=== PATIENT | male | born 1950 | race Caucasian/White ===

== ENCOUNTER 2019-06-18 05:18 | Emergency (ER) | payer MEDICARE, OTHER ==
[~2019-06-18] VITALS: Ht 190.5 cm; Wt 71.7 kg
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
--- NOTE | 2019-06-18 05:59 | NUR ---
URINE COLLECTED AND SENT TO LAB
[2019-06-18 06:51] LABS: APPEARANCE,URINE Clear (CLEAR); BILIRUBIN,URINE Negative (NEGATIVE); BLOOD, URINE Moderate Ery/uL (NEGATIVE); COLOR,URINE Yellow (YELLOW); KETONES,URINE Negative (NEGATIVE); LEUKOCYTE ESTERASE ,URINE Small (NEGATIVE); NITRITE, URINE Negative (NEGATIVE); PH,URINE 6.5 (5.0-8.0); PROTEIN,URINE Negative (NEGATIVE); UGLUCOSE Negative (NEGATIVE); UROBILINOGEN,URINE 0.2 EU/dL (0.2)
[2019-06-18 07:17] LABS: BACTERIA,URINE None seen /HPF (None Seen); RBC,URINE NONE SEEN /HPF (0-2); SQUAMOUS EPITHELIAL CELL,UR Few /HPF (None Seen)
[2019-06-18 07:32] VITALS: BP 151/71
--- NOTE | 2019-06-18 07:33 | NUR ---
Patient discharged to home in stable condition. Written and verbal after care instructions given. Patient verbalizes understanding of instruction.
== END 2019-06-18 07:33 | disposition home or self-care (01) ==
LOC: ER 05:26
DX: T83.028A Displacement of other urinary catheter, initial encounter (principal)
CPT/HCPCS: 81000-TC; 87086-TC

== ENCOUNTER 2019-07-09 04:20 | Emergency (ER) | payer OTHER ==
[~2019-07-09] VITALS: Ht 190.5 cm; Wt 67.1 kg
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
[2019-07-09 05:22] VITALS: BP 126/82
--- NOTE | 2019-07-09 05:22 | NUR ---
Patient discharged to home in stable condition. Written and verbal after care instructions given. Patient verbalizes understanding of instruction. PT ambulatory with a steady gait.
== END 2019-07-09 05:24 | disposition home or self-care (01) ==
LOC: ER 04:25
DX: H57.13 Ocular pain, bilateral (principal); F10.10 Alcohol abuse, uncomplicated; Y90.9 Presence of alcohol in blood, level not specified; Y08.89XA Assault by other specified means, initial encounter; Y93.39 Activity, other involving climbing, rappelling and jumping off; Y92.89 Other specified places as the place of occurrence of the external cause; Y99.8 Other external cause status
CPT/HCPCS: 70450-TC

== ENCOUNTER 2020-10-20 00:25 | Emergency (ER) | payer OTHER ==
[~2020-10-20] VITALS: Ht 190.5 cm; Wt 69.9 kg
[2020-10-20 00:33] VITALS: BP 127/79
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
== END 2020-10-20 03:20 ==
LOC: ER 00:25
DX: R05 Cough (principal); Z20.822 Contact with and (suspected) exposure to COVID-19
CPT/HCPCS: 87426; 99283; C9803

== ENCOUNTER 2025-03-21 13:09 | Inpatient (IN) | payer MEDICARE, OTHER ==
[~2025-03-21] VITALS: Ht 185.4 cm; Wt 62.1 kg
[2025-03-21 14:12] LABS: APPEARANCE,URINE CLEAR (CLEAR); BLOOD, URINE Moderate Ery/uL (NEGATIVE); LEUKOCYTE ESTERASE ,URINE Trace (NEGATIVE); UGLUCOSE Negative (NEGATIVE)
[2025-03-21 14:15] LABS: PLATELET COUNT (AUTO) 359 K/uL (150-450); RED BLOOD CELL COUNT(AUTO) 4.20 MIL/uL (4.5-6.0); RED CELL DISTRIBUTION WIDTH 15.8 % (11.5-15.0); WHITE BLOOD COUNT (AUTO) 12.2 K/uL (4.3-11.0)
[2025-03-21 14:17] LABS: NITRITE, URINE NEGATIVE (NEGATIVE)
[2025-03-21 14:18] LABS: CALCIUM, SERUM 9.2 mg/dL (8.5-10.1); CREATININE 1.5 mg/dL (0.6-1.3); SODIUM SERUM 134 mmol/L (136-145); UREA NITROGEN, BLOOD 56 mg/dL (7-18)
[2025-03-21 14:23] LABS: ASPARTATE AMINOTRANSFERASE 53 U/L (15-37); TOTAL PROTEIN, SERUM 7.6 g/dL (6.4-8.2)
[2025-03-21 14:29] LABS: ADD URINE CULTURE YES; SQUAMOUS EPITHELIAL CELL,UR Few /HPF (None Seen)
[2025-03-21] MEDS: IV NS 0.9% 1,000 ML BAG IV ONE ×2 (14:45→15:41)
[2025-03-21 14:57] LABS: LACTIC ACID 2.0 mmol/L (0.4-2.0)
[2025-03-21 15:22] LABS: AMPHETAMINE, URINE NEGATIVE (NEGATIVE); BARBITURATE, URINE NEGATIVE (NEGATIVE); BENZODIAZEPINE, URINE NEGATIVE (NEGATIVE); COCCAINE, URINE NEGATIVE (NEGATIVE); OPIATE, URINE NEGATIVE (NEGATIVE)
[2025-03-21 15:25] LABS: CANNABINOID, URINE POSITIVE (NEGATIVE)
[2025-03-21] MEDS: PIPERACILLIN /TAZOBACTAM 3.375 G in IV D5W 50 ML IV ONE (15:50)
[2025-03-21 15:59] LABS: SERUM AMMONIA 18 umol/L (11-32)
[2025-03-21 16:02] LABS: ALCOHOL, BLOOD < 3 mg/dL (0-10)
[2025-03-21] MEDS ORDERED: hydrALAZINE HCL IV 20 MG VIAL IV PRN (19:30)
[2025-03-21] MEDS ORDERED: DOSING PER PHARMACY-CEFEPIME IVPB XX PRN (19:30)
[2025-03-21] MEDS ORDERED: DEXTROSE 50%-WATER 50 ML DISP.SYRIN IV PRN (19:30)
[2025-03-21] MEDS ORDERED: MORPHINE SULFATE INJ 2 MG/ML DISP.SYRIN IV PRN (19:30)
[2025-03-21] MEDS ORDERED: ONDANSETRON HCL/PF 4 MG/2 ML VIAL IVP PRN (19:30)
[2025-03-21] MEDS ORDERED: ACETAMINOPHEN 325 MG TABLET PO PRN (19:30)
[2025-03-21 20:00] VITALS: BP 102/47; TEMP 97.9; O2SAT 98
[2025-03-21] MEDS: IV NS 0.9% 1,000 ML IV SCH (20:03)
[2025-03-21] MEDS: CEFEPIME 1 GM in IV D5W 50 ML IV SCH (20:29)
[2025-03-21] MEDS: HEPARIN SODIUM, PORCINE 5000 UNITS/1 ML VIAL SQ SCH (21:27)
[2025-03-21] MEDS: BLOOD SUGAR DIAGNOSTIC 1 EACH STRIP IN SCH (22:00)
[2025-03-21] MEDS: INSULIN REGULAR, HUMAN 100 UNIT/ML 3 ML VIAL SQ PRN (22:01)
[2025-03-22] VITALS: BP 103/66; TEMP 97.8; O2SAT 96
[2025-03-22 04:00] VITALS: BP 90/55; TEMP 98.1; O2SAT 95
[2025-03-22 07:58] LABS: PLATELET COUNT (AUTO) 318 K/uL (150-450); RED BLOOD CELL COUNT(AUTO) 3.88 MIL/uL (4.5-6.0); RED CELL DISTRIBUTION WIDTH 15.9 % (11.5-15.0); WHITE BLOOD COUNT (AUTO) 8.5 K/uL (4.3-11.0)
[2025-03-22 08:00] VITALS: BP_SYST 82; BP_SYST 93; BP_DIAS 45; BP_DIAS 48; TEMP 97.9; O2SAT 98
[2025-03-22 08:04] LABS: ASPARTATE AMINOTRANSFERASE 54.0 U/L (15-37); CALCIUM, SERUM 8.1 mg/dL (8.5-10.1); CREATININE 0.9 mg/dL (0.6-1.3); PHOSPHORUS 2.0 mg/dL (2.5-4.9); SODIUM SERUM 142.0 mmol/L (136-145); TOTAL PROTEIN, SERUM 5.7 g/dL (6.4-8.2); UREA NITROGEN, BLOOD 35.0 mg/dL (7-18)
[2025-03-22] MEDS: POLYETHYLENE GLYCOL 3350 17 GM POWD.PACK PO SCH (08:46)
[2025-03-22] MEDS: DOCUSATE SODIUM LIQ 100 MG/10 ML UDC PO SCH (08:46)
[2025-03-22 12:00] VITALS: BP 93/48; TEMP 98; O2SAT 97
[2025-03-22] MEDS: POTASSIUM CHLORIDE 20 MEQ TAB.PRT.SR PO ONE (12:52)
[2025-03-22 16:00] VITALS: BP 97/54; TEMP 97.7; O2SAT 97
[2025-03-22] MEDS: K PHOS NEUTRAL 250 MG TABLET PO ONE (16:57)
[2025-03-22 20:00] VITALS: BP 123/68; TEMP 97.7; O2SAT 97
[2025-03-23] VITALS: BP 120/70; TEMP 97.7; O2SAT 97
[2025-03-23 04:00] VITALS: BP 125/65; TEMP 98; O2SAT 97
[2025-03-23 07:35] LABS: PLATELET COUNT (AUTO) 285 K/uL (150-450); RED BLOOD CELL COUNT(AUTO) 4.44 MIL/uL (4.5-6.0); RED CELL DISTRIBUTION WIDTH 16.5 % (11.5-15.0); WHITE BLOOD COUNT (AUTO) 11.0 K/uL (4.3-11.0)
[2025-03-23 08:00] VITALS: BP 120/69; TEMP 98.4; O2SAT 96
[2025-03-23 08:15] LABS: ASPARTATE AMINOTRANSFERASE 44.0 U/L (15-37); CALCIUM, SERUM 8.0 mg/dL (8.5-10.1); CREATININE 0.6 mg/dL (0.6-1.3); SODIUM SERUM 139.0 mmol/L (136-145); TOTAL PROTEIN, SERUM 6.0 g/dL (6.4-8.2); UREA NITROGEN, BLOOD 24.0 mg/dL (7-18)
[2025-03-23 09:10] LABS: PHOSPHORUS 1.0 mg/dL (2.5-4.9)
[2025-03-23 09:52] LABS: CREATINE KINASE, TOTAL 409.0 U/L (39-308)
[2025-03-23 12:00] VITALS: BP 129/55; TEMP 98.1; O2SAT 96
[2025-03-23] MEDS: POTASSIUM CHLORIDE 20 MEQ TAB.PRT.SR PO SCH (15:13)
[2025-03-23] MEDS: NEUTRA PHOS 1 POWD.PACKET PO ONE (15:42)
[2025-03-23 16:00] VITALS: BP 112/67; TEMP 98.2; O2SAT 97
[2025-03-23 20:00] VITALS: BP 146/74; TEMP 98.2; O2SAT 98
[2025-03-24] VITALS: BP 140/60; TEMP 98.2; O2SAT 100
[2025-03-24 04:00] VITALS: BP 149/79; TEMP 97.9; O2SAT 96
[2025-03-24 05:08] LABS: PTH, INTACT 21 pg/mL (15-65)
[2025-03-24 07:28] LABS: CALCIUM, SERUM 7.7 mg/dL (8.5-10.1); CREATININE 0.6 mg/dL (0.6-1.3); SODIUM SERUM 139.0 mmol/L (136-145); UREA NITROGEN, BLOOD 16.0 mg/dL (7-18)
[2025-03-24 07:44] LABS: PHOSPHORUS 1.7 mg/dL (2.5-4.9)
[2025-03-24 08:00] VITALS: BP 146/75; TEMP 98; O2SAT 96
[2025-03-24 09:51] VITALS: BP 146/75; TEMP 98.1; O2SAT 97
[2025-03-24] MEDS: POTASSIUM CHLORIDE 20 MEQ TAB.PRT.SR PO SCH (10:17)
[2025-03-24] MEDS: MAGNESIUM OXIDE 400 MG TABLET PO SCH (10:17)
[2025-03-24 15:59] VITALS: BP 162/73; TEMP 98.2; O2SAT 97
[2025-03-24] MEDS: K PHOS NEUTRAL 250 MG TABLET PO ONE (16:00)
[2025-03-27 13:08] LABS: *SPE A/G RATIO 0.9 (0.7-1.7); *SPE ALBUMIN 2.4 g/dL (2.9-4.4); *SPE ALPHA-1-GLOBULIN 0.2 g/dL (0.0-0.4); *SPE ALPHA-2-GLOBULIN 0.8 g/dL (0.4-1.0); *SPE BETA GLOBULIN 1.0 g/dL (0.7-1.3); *SPE GLOBULIN, TOTAL 2.6 g/dL (2.2-3.9); *SPE M-SPIKE Not Observed g/dL (Not Observed); *SPE PROTEIN TOTAL 5.0 g/dL (6.0-8.5); *SPEGAMMA GLOBULIN 0.7 g/dL (0.4-1.8)
== END 2025-03-24 17:45 | DRG 720 ==
LOC: ER 13:15 → TELE1 18:21 → MEDSG1 03-24 08:57
PROVIDERS: ADMIT Internal Medicine; ATTEND Internal Medicine
DX: A41.9 Sepsis, unspecified organism (principal); N17.0 Acute kidney failure with tubular necrosis; R64 Cachexia; E44.0 Moderate protein-calorie malnutrition; R65.20 Severe sepsis without septic shock; R62.7 Adult failure to thrive; E86.0 Dehydration; E87.1 Hypo-osmolality and hyponatremia; D64.9 Anemia, unspecified; E87.6 Hypokalemia; Z59.00 Homelessness unspecified; R53.1 Weakness; R73.9 Hyperglycemia, unspecified; Z68.1 Body mass index [BMI] 19.9 or less, adult; M89.8X9 Other specified disorders of bone, unspecified site
CPT/HCPCS: 36415; 70450-TC; 71045-TC; 80048-TC; 80053-TC; 80076-TC; 81001; 82140-TC; 82550-TC; 82553; 82962-TC; 83605-TC; 83690-TC; 83735-TC; 83880; 83970; 84100-TC; 84155; 84165; 84443-TC; 84484-TC; 85025-TC; 87040-TC; 87081-TC; 87086-TC; 92526; 92611-TC; 97110-TC; 97116-TC; 97530-TC; 97535-TC; 98960; A4223; G0378; G0480; J0692; J1644; J1815; J2543; J3490; J7030; J7060

== ENCOUNTER 2025-04-02 07:37 | Inpatient (IN) | payer OTHER ==
[~2025-04-02] VITALS: Ht 188 cm; Wt 48.1 kg
[2025-04-02 08:06] LABS: PLATELET COUNT (AUTO) 663 K/uL (150-450); RED BLOOD CELL COUNT(AUTO) 4.40 MIL/uL (4.5-6.0); RED CELL DISTRIBUTION WIDTH 15.8 % (11.5-15.0); WHITE BLOOD COUNT (AUTO) 22.9 K/uL (4.3-11.0)
[2025-04-02 08:21] LABS: ASPARTATE AMINOTRANSFERASE 30.0 U/L (15-37); CALCIUM, SERUM 9.3 mg/dL (8.5-10.1); SODIUM SERUM 143.0 mmol/L (136-145); TOTAL PROTEIN, SERUM 7.1 g/dL (6.4-8.2)
[2025-04-02 08:25] LABS: INR 1.1 (0.91-1.10)
[2025-04-02] MEDS: IV NS 0.9% 1,000 ML BAG IV ONE (08:30)
[2025-04-02] MEDS: PIPERACILLIN /TAZOBACTAM 3.375 G in IV D5W 50 ML IV ONE (08:43)
[2025-04-02 08:46] LABS: LACTIC ACID 2.3 mmol/L (0.4-2.0)
[2025-04-02 08:58] LABS: CREATININE 5.0 mg/dL (0.6-1.3)
[2025-04-02] MEDS ORDERED: MAGN400O6 PO (09:12)
[2025-04-02] MEDS ORDERED: NA P133E RC (09:12)
[2025-04-02] MEDS ORDERED: DOCU100T2 PO (09:12)
[2025-04-02] MEDS ORDERED: BISA10SU11 RC (09:12)
[2025-04-02] MEDS: VANCOMYCIN 1 GM in IV D5W 250 ML IV ONE (09:26)
[2025-04-02] MEDS ORDERED: DOSING PER PHARMACY-ZOSYN IV 1 EA EA XX PRN (11:00)
[2025-04-02] MEDS ORDERED: ACETAMINOPHEN 325 MG TABLET PO PRN (11:00)
[2025-04-02] MEDS ORDERED: MAGNESIUM HYDROXIDE 30 ML UDC PO PRN (11:00)
[2025-04-02] MEDS ORDERED: Z GUARD REMEDY 4 OZ OINT TP PRN (11:00)
[2025-04-02] MEDS ORDERED: DOSING PER PHARMACY-VANCOMYCIN IV XX PRN (11:00)
[2025-04-02] MEDS ORDERED: MAG HYDROX/AL HYDROX/SIMETH 30 ML UDC PO PRN (11:00)
[2025-04-02] MEDS ORDERED: ONDANSETRON HCL/PF 4 MG/2 ML VIAL IVP PRN (11:00)
[2025-04-02 12:00] VITALS: BP 143/99; TEMP 97.5; O2SAT 96
[2025-04-02] MEDS: IV NS 0.9% 1,000 ML IV SCH (12:45)
[2025-04-02 16:00] VITALS: BP 159/88; TEMP 97.5; O2SAT 98
[2025-04-02] MEDS: PIPERACILLIN /TAZOBACTAM 2.25 G in IV D5W 50 ML IV SCH (17:25)
[2025-04-02] MEDS ORDERED: LEVALBUTEROL HCL NEB 1.25 MG/0.5 ML VIAL.NEB NEB PRN (17:30)
[2025-04-02] MEDS ORDERED: IPRATROPIUM NEB FS 0.5 MG/2.5 ML AMPUL.NEB NEB PRN (17:30)
[2025-04-02 18:18] VITALS: BP 159/88; TEMP 97.5; O2SAT 98
[2025-04-02 20:06] LABS: APPEARANCE,URINE CLEAR (CLEAR); BLOOD, URINE NEGATIVE Ery/uL (NEGATIVE); LEUKOCYTE ESTERASE ,URINE NEGATIVE (NEGATIVE); NITRITE, URINE NEGATIVE (NEGATIVE); UGLUCOSE NEGATIVE (NEGATIVE)
[2025-04-02 20:22] LABS: CREATININE, URINE 74.9 MG/DL (30.0-125.0); URINE SODIUM, RANDOM 35.0 mmol/l (40-220); URINE TOTAL PROTEIN 18.1 mg/dL (0-11.9)
[2025-04-02 20:43] LABS: ADD URINE CULTURE NO; SQUAMOUS EPITHELIAL CELL,UR 0-2 /HPF (None Seen)
[2025-04-02] MEDS: HEPARIN SODIUM, PORCINE 5000 UNITS/1 ML VIAL SQ SCH (20:47)
[2025-04-02 21:00] VITALS: BP 139/77; TEMP 98.6; O2SAT 97
[2025-04-02 21:34] LABS: EOSINOPHIL,URINE None Seen
[2025-04-03 01:00] VITALS: BP 135/82; TEMP 98.6; O2SAT 98
[2025-04-03 05:00] VITALS: BP 133/75; TEMP 97.9; O2SAT 97
[2025-04-03 06:38] LABS: ASPARTATE AMINOTRANSFERASE 25.0 U/L (15-37); CALCIUM, SERUM 8.9 mg/dL (8.5-10.1); CREATININE 3.0 mg/dL (0.6-1.3); PHOSPHORUS 5.2 mg/dL (2.5-4.9); SODIUM SERUM 155.0 mmol/L (136-145); TOTAL PROTEIN, SERUM 6.2 g/dL (6.4-8.2)
[2025-04-03 06:46] LABS: PLATELET COUNT (AUTO) 589 K/uL (150-450); RED BLOOD CELL COUNT(AUTO) 4.05 MIL/uL (4.5-6.0); RED CELL DISTRIBUTION WIDTH 15.7 % (11.5-15.0); WHITE BLOOD COUNT (AUTO) 19.2 K/uL (4.3-11.0)
[2025-04-03 08:00] VITALS: BP 153/83; TEMP 97.5; O2SAT 98
[2025-04-03 08:26] LABS: CREATINE KINASE, TOTAL 30.0 U/L (39-308)
[2025-04-03] MEDS: TAMSULOSIN 0.4 MG CAP.SR.24H PO SCH (08:58)
[2025-04-03 09:49] LABS: UREA NITROGEN, BLOOD 141.0 mg/dL (7-18)
[2025-04-03 12:00] VITALS: BP 157/86; TEMP 97.9; O2SAT 99
[2025-04-03] MEDS: CEFTRIAXONE 1 G in IV D5W 50 ML IV SCH (12:09)
[2025-04-03] MEDS: AZITHROMYCIN 250 MG TABLET PO SCH (12:09)
[2025-04-03 16:00] VITALS: BP 149/88; TEMP 97.7; O2SAT 99
[2025-04-03] MEDS ORDERED: ENSURE ENLIVE 237 ML LIQUID (VANILLA) PO SCH (18:00)
[2025-04-03 18:41] LABS: CALCIUM, SERUM 8.7 mg/dL (8.5-10.1); CREATININE 3.4 mg/dL (0.6-1.3); PHOSPHORUS 4.9 mg/dL (2.5-4.9); SODIUM SERUM 151.0 mmol/L (136-145)
[2025-04-03 18:44] LABS: UREA NITROGEN, BLOOD 131.0 mg/dL (7-18)
[2025-04-03 20:00] VITALS: BP 139/76; TEMP 97.7; O2SAT 98
[2025-04-04] VITALS: BP 135/74; TEMP 97.7; O2SAT 98
[2025-04-04 04:00] VITALS: BP 143/71; TEMP 97.7; O2SAT 98
[2025-04-04 07:47] LABS: CALCIUM, SERUM 8.5 mg/dL (8.5-10.1); CREATININE 1.1 mg/dL (0.6-1.3); PHOSPHORUS 2.4 mg/dL (2.5-4.9); UREA NITROGEN, BLOOD 73.0 mg/dL (7-18)
[2025-04-04 07:50] LABS: PLATELET COUNT (AUTO) 548 K/uL (150-450); RED BLOOD CELL COUNT(AUTO) 4.12 MIL/uL (4.5-6.0); RED CELL DISTRIBUTION WIDTH 16.2 % (11.5-15.0); WHITE BLOOD COUNT (AUTO) 10.0 K/uL (4.3-11.0)
[2025-04-04 08:00] VITALS: BP 122/70; TEMP 96.6; O2SAT 97
[2025-04-04 08:07] LABS: PTH, INTACT 49 pg/mL (15-65)
[2025-04-04 08:17] LABS: SODIUM SERUM 155.0 mmol/L (136-145)
[2025-04-04] MEDS: ENSURE ENLIVE 237 ML LIQUID (VANILLA) PO SCH ×2 (08:43→12:39)
[2025-04-04] MEDS ORDERED: VANCOMYCIN 500 MG in IV D5W 100ml IV SCH (09:00)
[2025-04-04] MEDS: POTASSIUM CHLORIDE 20 MEQ TAB.PRT.SR PO SCH (11:41)
[2025-04-04] MEDS: IV D5W 1,000 ML IV SCH (11:42)
[2025-04-04 12:00] VITALS: BP 127/71; TEMP 97; O2SAT 97
[2025-04-04] MEDS: K PHOS NEUTRAL 250 MG TABLET PO ONE (15:40)
[2025-04-04 16:00] VITALS: BP 144/72; TEMP 97.5; O2SAT 98
[2025-04-04 20:00] VITALS: BP 149/76; TEMP 97.9; O2SAT 98
[2025-04-05 06:57] LABS: PLATELET COUNT (AUTO) 576 K/uL (150-450); RED BLOOD CELL COUNT(AUTO) 3.61 MIL/uL (4.5-6.0); RED CELL DISTRIBUTION WIDTH 16.3 % (11.5-15.0); WHITE BLOOD COUNT (AUTO) 10.6 K/uL (4.3-11.0)
[2025-04-05 07:11] LABS: ASPARTATE AMINOTRANSFERASE 39.0 U/L (15-37); CALCIUM, SERUM 8.1 mg/dL (8.5-10.1); CREATININE 0.9 mg/dL (0.6-1.3); PHOSPHORUS 1.2 mg/dL (2.5-4.9); SODIUM SERUM 147.0 mmol/L (136-145); TOTAL PROTEIN, SERUM 5.7 g/dL (6.4-8.2); UREA NITROGEN, BLOOD 33.0 mg/dL (7-18)
[2025-04-05 08:02] VITALS: BP 146/77; TEMP 97.9; O2SAT 97
[2025-04-05] MEDS ORDERED: AZIT500T4 PO (11:10)
[2025-04-05] MEDS ORDERED: TAMS-12 PO (11:10)
[2025-04-05] MEDS ORDERED: CEFT1VIA15 IV (11:10)
[2025-04-07 07:07] LABS: *SPE A/G RATIO 0.4 (0.7-1.7); *SPE ALBUMIN 1.6 g/dL (2.9-4.4); *SPE ALPHA-1-GLOBULIN 0.4 g/dL (0.0-0.4); *SPE ALPHA-2-GLOBULIN 1.1 g/dL (0.4-1.0); *SPE BETA GLOBULIN 1.3 g/dL (0.7-1.3); *SPE GLOBULIN, TOTAL 3.6 g/dL (2.2-3.9); *SPE M-SPIKE Not Observed g/dL (Not Observed); *SPE PROTEIN TOTAL 5.2 g/dL (6.0-8.5); *SPEGAMMA GLOBULIN 0.9 g/dL (0.4-1.8)
== END 2025-04-05 15:20 | DRG 720 ==
LOC: ER 07:43 → MEDSG1 11:05 → TELE1 11:43 → MEDSG1 04-04 12:57
PROVIDERS: ADMIT Nurse Practitioner Acute Care; ATTEND Nurse Practitioner Family
DX: A41.9 Sepsis, unspecified organism (principal); G93.40 Encephalopathy, unspecified; E87.20 Acidosis, unspecified; J15.9 Unspecified bacterial pneumonia; E87.0 Hyperosmolality and hypernatremia; E44.1 Mild protein-calorie malnutrition; R64 Cachexia; N17.9 Acute kidney failure, unspecified; E83.9 Disorder of mineral metabolism, unspecified; E86.0 Dehydration; E88.09 Other disorders of plasma-protein metabolism, not elsewhere classified; N13.30 Unspecified hydronephrosis; R65.20 Severe sepsis without septic shock; D75.839 Thrombocytosis, unspecified; E87.5 Hyperkalemia; E83.42 Hypomagnesemia; E86.1 Hypovolemia; E87.6 Hypokalemia; M89.8X9 Other specified disorders of bone, unspecified site; N40.0 Benign prostatic hyperplasia without lower urinary tract symptoms; R33.9 Retention of urine, unspecified; Z87.440 Personal history of urinary (tract) infections; R53.1 Weakness
CPT/HCPCS: 36415; 71045-TC; 76770-TC; 80048-TC; 80053-TC; 80076-TC; 81001; 82550-TC; 82570-TC; 83605-TC; 83735-TC; 83970; 84100-TC; 84155; 84165; 84300-TC; 84484-TC; 85025-TC; 85730-TC; 87040-TC; 87081-TC; 87086-TC; A4223; G0378; J0696; J1644; J2543; J3373; J7030; J7060; J7070

== ENCOUNTER 2025-04-23 11:51 | Inpatient (IN) | payer OTHER ==
[~2025-04-23] VITALS: Ht 188 cm; Wt 49.9 kg
[~2025-04-23 11:51] MED LIST: AZIT500T4 PO; BISA10SU11 RC; CEFT1VIA15 IV; DOCU100T2 PO; MAGN400O6 PO; NA P133E RC; TAMS-12 PO
[2025-04-23] MEDS ORDERED: PETR113O TP (12:14)
[2025-04-23] MEDS ORDERED: ACET-2030 PO (12:14)
[2025-04-23] MEDS ORDERED: TAMS-12 PO (12:14)
[2025-04-23] MEDS ORDERED: CRAN425C6 PO (12:14)
[2025-04-23] MEDS ORDERED: ACET-868 PO (12:14)
[2025-04-23] MEDS ORDERED: AMIN30LI66 PO (12:14)
[2025-04-23 12:40] LABS: ASPARTATE AMINOTRANSFERASE 54.0 U/L (15-37); CALCIUM, SERUM 8.3 mg/dL (8.5-10.1); CREATININE 5.9 mg/dL (0.6-1.3); SODIUM SERUM 136.0 mmol/L (136-145); TOTAL PROTEIN, SERUM 6.2 g/dL (6.4-8.2)
[2025-04-23 12:43] LABS: UREA NITROGEN, BLOOD 140.0 mg/dL (7-18)
[2025-04-23] MEDS: IV NS 0.9% 1,000 ML BAG IV ONE (13:04)
[2025-04-23 13:13] LABS: PLATELET COUNT (AUTO) 548 K/uL (150-450); RED BLOOD CELL COUNT(AUTO) 3.96 MIL/uL (4.5-6.0); RED CELL DISTRIBUTION WIDTH 15.6 % (11.5-15.0); WHITE BLOOD COUNT (AUTO) 6.6 K/uL (4.3-11.0)
[2025-04-23 13:22] LABS: APPEARANCE,URINE SLIGHTLY CLOUDY (CLEAR); BLOOD, URINE 3+ Ery/uL (NEGATIVE); LEUKOCYTE ESTERASE ,URINE 3+ (NEGATIVE); NITRITE, URINE NEGATIVE (NEGATIVE); UGLUCOSE NEGATIVE (NEGATIVE)
[2025-04-23 13:32] LABS: ADD URINE CULTURE YES; SQUAMOUS EPITHELIAL CELL,UR None Seen /HPF (None Seen)
[2025-04-23] MEDS: SODIUM POLYSTYRENE SULFONATE 15 G/60 ML BOTTLE PO ONE (13:42)
[2025-04-23] MEDS: ALBUTEROL FS 2.5 MG/3 ML VIAL.NEB NEB ONE (14:20)
[2025-04-23] MEDS ORDERED: CEFTRIAXONE 1 G VIAL ONE (14:33)
[2025-04-23] MEDS: CEFTRIAXONE 1GM BAG (ER ONLY) 1 GM/50 ML PIGGYBACK IV ONE (14:39)
[2025-04-23] MEDS ORDERED: Z GUARD REMEDY 4 OZ OINT TP PRN (15:00)
[2025-04-23] MEDS ORDERED: MAG HYDROX/AL HYDROX/SIMETH 30 ML UDC PO PRN (15:00)
[2025-04-23] MEDS ORDERED: ONDANSETRON HCL/PF 4 MG/2 ML VIAL IVP PRN (15:00)
[2025-04-23] MEDS ORDERED: MAGNESIUM HYDROXIDE 30 ML UDC PO PRN (15:00)
[2025-04-23] MEDS ORDERED: ACETAMINOPHEN 325 MG TABLET PO PRN (15:00)
[2025-04-23 20:00] VITALS: BP 136/82; TEMP 97.5; O2SAT 98
[2025-04-23 20:05] VITALS: BP 136/82; TEMP 97.5; O2SAT 98
[2025-04-23] MEDS: IV 1/2NS 1000 ML 1,000 ML IV PRN (20:06)
[2025-04-24] VITALS: BP 135/78; TEMP 97.5; O2SAT 96
[2025-04-24 04:00] VITALS: BP 126/93; TEMP 97.9; O2SAT 96
[2025-04-24 07:23] LABS: PLATELET COUNT (AUTO) 523 K/uL (150-450); RED BLOOD CELL COUNT(AUTO) 3.75 MIL/uL (4.5-6.0); RED CELL DISTRIBUTION WIDTH 16.0 % (11.5-15.0); WHITE BLOOD COUNT (AUTO) 7.9 K/uL (4.3-11.0)
[2025-04-24 07:37] LABS: CALCIUM, SERUM 8.4 mg/dL (8.5-10.1); CREATININE 5.8 mg/dL (0.6-1.3); PHOSPHORUS 7.5 mg/dL (2.5-4.9); SODIUM SERUM 142.0 mmol/L (136-145)
[2025-04-24 07:54] LABS: UREA NITROGEN, BLOOD 131.0 mg/dL (7-18)
[2025-04-24 08:00] VITALS: BP 116/82; TEMP 98.1; O2SAT 98
[2025-04-24] MEDS: SODIUM ZIRCONIUM CYCLOSILICATE 10 GM POWD.PACK PO SCH (10:29)
[2025-04-24 12:00] VITALS: BP 146/83; TEMP 97.5; O2SAT 99
[2025-04-24] MEDS: CEFTRIAXONE 1 G in IV D5W 50 ML IV SCH (14:20)
[2025-04-24 16:00] VITALS: BP 132/76; TEMP 97.3; O2SAT 98
[2025-04-24] MEDS: TAMSULOSIN 0.4 MG CAP.SR.24H PO SCH (17:46)
[2025-04-24 20:00] VITALS: BP 135/79; TEMP 97.5; O2SAT 98
[2025-04-25] VITALS (8 sets, daily range): BP systolic 120–144; BP diastolic 80–94; TEMP 97.2–97.7; O2SAT 97–99
[2025-04-25] MEDS: DOCUSATE SODIUM 100 MG CAPSULE PO SCH (09:15)
[2025-04-25 11:42] LABS: PLATELET COUNT (AUTO) 491 K/uL (150-450); RED BLOOD CELL COUNT(AUTO) 3.77 MIL/uL (4.5-6.0); RED CELL DISTRIBUTION WIDTH 15.7 % (11.5-15.0); WHITE BLOOD COUNT (AUTO) 9.1 K/uL (4.3-11.0)
[2025-04-25 12:00] LABS: ASPARTATE AMINOTRANSFERASE 48 U/L (15-37); CALCIUM, SERUM 8.0 mg/dL (8.5-10.1); CREATININE 5.4 mg/dL (0.6-1.3); PHOSPHORUS 6.7 mg/dL (2.5-4.9); SODIUM SERUM 135 mmol/L (136-145); TOTAL PROTEIN, SERUM 6.0 g/dL (6.4-8.2)
[2025-04-25 12:01] LABS: UREA NITROGEN, BLOOD 124 mg/dL (7-18)
[2025-04-25 17:45] LABS: CREATININE, URINE 38.3 MG/DL (30.0-125.0); URINE SODIUM, RANDOM 60.0 mmol/l (40-220); URINE TOTAL PROTEIN 7.7 mg/dL (0-11.9)
[2025-04-25 17:52] LABS: APPEARANCE,URINE CLEAR (CLEAR); BLOOD, URINE 2+ Ery/uL (NEGATIVE); LEUKOCYTE ESTERASE ,URINE 1+ (NEGATIVE); NITRITE, URINE NEGATIVE (NEGATIVE); UGLUCOSE NEGATIVE (NEGATIVE)
[2025-04-25 18:00] LABS: ADD URINE CULTURE YES; SQUAMOUS EPITHELIAL CELL,UR None Seen /HPF (None Seen)
[2025-04-25 18:39] LABS: EOSINOPHIL,URINE None Seen
[2025-04-26 07:30] VITALS: BP 110/76; TEMP 97.7; O2SAT 97
[2025-04-26 07:44] LABS: PLATELET COUNT (AUTO) 451 K/uL (150-450); RED BLOOD CELL COUNT(AUTO) 3.84 MIL/uL (4.5-6.0); RED CELL DISTRIBUTION WIDTH 15.2 % (11.5-15.0); WHITE BLOOD COUNT (AUTO) 8.8 K/uL (4.3-11.0)
[2025-04-26 08:12] LABS: CALCIUM, SERUM 8.3 mg/dL (8.5-10.1); CREATININE 1.1 mg/dL (0.6-1.3); PHOSPHORUS 2.6 mg/dL (2.5-4.9); SODIUM SERUM 139.0 mmol/L (136-145); UREA NITROGEN, BLOOD 47.0 mg/dL (7-18)
[2025-04-26] MEDS: MAGNESIUM OXIDE 400 MG TABLET PO ONE (09:42)
[2025-04-26 16:00] VITALS: BP 116/82; TEMP 98.1; O2SAT 98
[2025-04-26 20:00] VITALS: BP 106/70; TEMP 97.3; O2SAT 97
[2025-04-27 06:23] LABS: PLATELET COUNT (AUTO) 446 K/uL (150-450); RED BLOOD CELL COUNT(AUTO) 3.72 MIL/uL (4.5-6.0); RED CELL DISTRIBUTION WIDTH 15.4 % (11.5-15.0); WHITE BLOOD COUNT (AUTO) 9.7 K/uL (4.3-11.0)
[2025-04-27 07:06] LABS: CALCIUM, SERUM 7.7 mg/dL (8.5-10.1); CREATININE 0.6 mg/dL (0.6-1.3); SODIUM SERUM 137.0 mmol/L (136-145); UREA NITROGEN, BLOOD 28.0 mg/dL (7-18)
[2025-04-27 07:30] VITALS: BP 90/61; TEMP 97.9; O2SAT 96
[2025-04-27] MEDS ORDERED: CEPH-570 PO (09:55)
[2025-04-27] MEDS ORDERED: IV NS 0.9% 500 ML IV ONE (14:00)
== END 2025-04-27 15:00 | DRG 447 ==
LOC: ER 11:56 → TELE 17:25 → MED 04-25 10:38
PROVIDERS: ADMIT Internal Medicine; ATTEND Internal Medicine
PROC: 0WC Anatomical Regions, General, Extirpation (ICD-10-PCS; principal; 2025-04-26)
DX: T19.1XXA Foreign body in bladder, initial encounter (principal); N17.9 Acute kidney failure, unspecified; E44.1 Mild protein-calorie malnutrition; E87.0 Hyperosmolality and hypernatremia; F03.90 Unspecified dementia, unspecified severity, without behavioral disturbance, psychotic disturbance, mood disturbance, and anxiety; E86.0 Dehydration; E88.09 Other disorders of plasma-protein metabolism, not elsewhere classified; E83.39 Other disorders of phosphorus metabolism; E87.5 Hyperkalemia; D75.839 Thrombocytosis, unspecified; I10 Essential (primary) hypertension; R13.10 Dysphagia, unspecified; D64.9 Anemia, unspecified; Z79.899 Other long term (current) drug therapy; Z74.09 Other reduced mobility; N40.1 Benign prostatic hyperplasia with lower urinary tract symptoms; R33.8 Other retention of urine; Z74.1 Need for assistance with personal care; N13.30 Unspecified hydronephrosis; W44.8XXA Other foreign body entering into or through a natural orifice, initial encounter
CPT/HCPCS: 36415; 71045-TC; 76770-TC; 80048-TC; 80053-TC; 80076-TC; 81001; 82570-TC; 83690-TC; 83735-TC; 84100-TC; 84300-TC; 85025-TC; 87081-TC; 87086-TC; 87186-TC; A4223; G0378; J0696; J3490; J7030; J7040; J7060

== ENCOUNTER 2025-06-24 13:01 | Inpatient (IN) | payer MEDICAID, OTHER ==
[~2025-06-24] VITALS: Ht 182.9 cm; Wt 62.6 kg
[2025-06-24] VITALS (10 sets, daily range): BP systolic 63–92; BP diastolic 37–70; TEMP 94; O2SAT 75–90
[~2025-06-24 13:01] MED LIST changes: +ACET-2030 PO; +ACET-868 PO; +AMIN30LI66 PO; -AZIT500T4 PO; -CEFT1VIA15 IV; +CEPH-570 PO; +CRAN425C6 PO; +PETR113O TP
[2025-06-24] MEDS: NOREPINEPHRINE 8 MG in IV NS 0.9% 242 ML IV PRN (13:10)
[2025-06-24] MEDS ORDERED: NOREPINEPHRINE 8MG/250ML RTU 0 ML IV ONE (13:17)
[2025-06-24] MEDS ORDERED: NOREPINEPHRINE 8MG/250ML RTU 250 ML IV ONE ×4 (13:18→20:12)
[2025-06-24] MEDS: IV NS 0.9% 1,000 ML BAG IV ONE (13:20)
[2025-06-24 14:54] LABS: ABG BASE EXCESS -31.5 mmol/L (-2.0-3.0); ABG OXYGEN SATURATION 87.8 % (94.0-98.0); ABG PCO2 75.1 mmHg (35.0-48.0); ABG PH 6.606 (7.350-7.450); ABG PO2 103.4 mmHg (83.0-108.0); ABG TOTAL HEMOGLOBIN 13.3 G/dL (13.5-17.5); FRACTIONATED INSPIRED OXYGEN 100.0 %; PEEP,BG 5 cm H2O; SET RATE, BG 16.0; SITE, ABG RIGHT RADIAL; VT, ABG 500 mL
[2025-06-24 15:14] LABS: APPEARANCE,URINE BLOODY (CLEAR)
[2025-06-24] MEDS ORDERED: SODIUM BICARBONATE SYR 50 MEQ/50 ML DISP.SYRIN ONE ×3 (15:22→17:22)
[2025-06-24] MEDS: SODIUM BICARBONATE 5 MEQ/10 ML DISP.SYRIN IV ONE (15:29)
[2025-06-24] MEDS: SODIUM BICARBONATE SYR 50 MEQ/50 ML DISP.SYRIN IV ONE ×2 (15:29→17:01)
[2025-06-24 15:35] LABS: SQUAMOUS EPITHELIAL CELL,UR Few /HPF (None Seen)
[2025-06-24] MEDS: VASOPRESSIN INJ 40 UNIT in IV NS 0.9% 38 ML IV PRN (15:45)
[2025-06-24 16:21] LABS: RED BLOOD CELL COUNT(AUTO) 4.04 MIL/uL (4.5-6.0); WHITE BLOOD COUNT (AUTO) 14.0 K/uL (4.3-11.0)
[2025-06-24 16:22] LABS: PLATELET COUNT (AUTO) 421 K/uL (150-450); RED CELL DISTRIBUTION WIDTH 20.8 % (11.5-15.0)
[2025-06-24 16:37] LABS: ASPARTATE AMINOTRANSFERASE 244 U/L (15-37); CALCIUM, SERUM 8.2 mg/dL (8.5-10.1); CREATININE 3.8 mg/dL (0.6-1.3); SODIUM SERUM 149 mmol/L (136-145); TOTAL PROTEIN, SERUM 5.1 g/dL (6.4-8.2)
[2025-06-24 16:38] LABS: UREA NITROGEN, BLOOD 92 mg/dL (7-18)
[2025-06-24 16:43] LABS: INR 1.26 (0.91-1.10)
[2025-06-24 16:50] LABS: LACTIC ACID 8.7 mmol/L (0.4-2.0)
[2025-06-24] MEDS: Sodium Bicarbonate 150 MEQ in IV D5W 1,000 ML IV SCH (17:00)
[2025-06-24] MEDS: PHENYLEPHRINE 50 MG in IV NS 0.9% 245 ML IV PRN (17:05)
[2025-06-24 17:24] LABS: ABG BASE EXCESS -11.5 mmol/L (-2.0-3.0); ABG OXYGEN SATURATION 97.9 % (94.0-98.0); ABG PCO2 123.2 mmHg (35.0-48.0); ABG PH 6.899 (7.350-7.450); ABG PO2 188.2 mmHg (83.0-108.0); ABG TOTAL HEMOGLOBIN 12.2 G/dL (13.5-17.5); FRACTIONATED INSPIRED OXYGEN 100.0 %; PEEP,BG 0 cm H2O; SET RATE, BG 26.0; SITE, ABG ALINE; VT, ABG 500 mL
[2025-06-24] MEDS ORDERED: SODIUM BICARBONATE 5 ML VIAL IV STA (17:25)
[2025-06-24] MEDS ORDERED: Z GUARD REMEDY 4 OZ OINT TP PRN (17:30)
[2025-06-24] MEDS ORDERED: ONDANSETRON HCL/PF 4 MG/2 ML VIAL IVP PRN (17:30)
[2025-06-24 17:41] LABS: EOSINOPHILS % (MANUAL) 1 % (0-4); LYMPHOCYTES % (MANUAL) 42 % (16-48); MONOCYTES % (MANUAL) 4 % (0-11.0); NEUTROPHILS % (MANUAL) 53 (42-76); PLATELET ESTIMATE ADEQUATE
[2025-06-24] MEDS: SODIUM BICARBONATE SYR 50 MEQ/50 ML DISP.SYRIN IV STA (18:00)
[2025-06-24] MEDS: PIPERACILLIN /TAZOBACTAM 3.375 G in IV D5W 50 ML IV ONE (18:00)
[2025-06-24] MEDS ORDERED: ALBUTEROL FS 2.5 MG/0.5 ML VIAL.NEB ONE (18:03)
[2025-06-24] MEDS: ALBUTEROL FS 2.5 MG/3 ML VIAL.NEB CONTNEB SCH (18:05)
[2025-06-24] MEDS: EPINEPHRINE (1:1000) 10 MG in IV NS 0.9% 240 ML IV PRN ×2 (18:10→23:23)
[2025-06-24 18:15] LABS: ABG BASE EXCESS -8.0 mmol/L (-2.0-3.0); ABG OXYGEN SATURATION 96.7 % (94.0-98.0); ABG PCO2 115.6 mmHg (35.0-48.0); ABG PH 6.966 (7.350-7.450); ABG PO2 132.2 mmHg (83.0-108.0); ABG TOTAL HEMOGLOBIN 11.5 G/dL (13.5-17.5); FRACTIONATED INSPIRED OXYGEN 100.0 %; PEEP,BG 0 cm H2O; SET RATE, BG 26.0; SITE, ABG ALINE; VT, ABG 500 mL
[2025-06-24] MEDS ORDERED: ROCURONIUM BROMIDE 50 MG/5 ML ONE (18:15)
[2025-06-24] MEDS: ROCURONIUM BROMIDE 50 MG/5 ML IV ONE (18:20)
[2025-06-24] MEDS: VANCOMYCIN 1 GM in IV D5W 250 ML IV ONE (18:20)
[2025-06-24] MEDS: KETAMINE HCL (500MG/5 ML) 100 MG/ML VIAL IV ONE (18:30)
[2025-06-24 18:37] LABS: ABG BASE EXCESS -13.0 mmol/L (-2.0-3.0); ABG OXYGEN SATURATION 95.4 % (94.0-98.0); ABG PCO2 91.5 mmHg (35.0-48.0); ABG PH 6.958 (7.350-7.450); ABG PO2 114.1 mmHg (83.0-108.0); ABG TOTAL HEMOGLOBIN 11.5 G/dL (13.5-17.5); FRACTIONATED INSPIRED OXYGEN 100.0 %; PEEP,BG 0 cm H2O; SET RATE, BG 28.0; SITE, ABG ALINE; VT, ABG 550 mL
[2025-06-24 19:25] LABS: ABG BASE EXCESS -12.3 mmol/L (-2.0-3.0); ABG OXYGEN SATURATION 92.0 % (94.0-98.0); ABG PCO2 92.6 mmHg (35.0-48.0); ABG PH 6.968 (7.350-7.450); ABG PO2 91.3 mmHg (83.0-108.0); ABG TOTAL HEMOGLOBIN 12.0 G/dL (13.5-17.5); FRACTIONATED INSPIRED OXYGEN 100.0 %; PEEP,BG 0 cm H2O; SET RATE, BG 24.0; SITE, ABG ALINE; VT, ABG 500 mL
[2025-06-24] MEDS ORDERED: CISATRACURIUM BESYLATE IV PRN (19:30)
[2025-06-24] MEDS ORDERED: DOSING PER PHARMACY-VANCOMYCIN IV XX PRN (19:30)
[2025-06-24] MEDS ORDERED: MIDAZOLAM HCL 100 MG in IV NS 0.9% 80 ML IV PRN (19:30)
[2025-06-24] MEDS ORDERED: NS 0.9% IV PRN (19:30)
[2025-06-24] MEDS ORDERED: FENTANYL CITRAT IV 2,500 MCG in IV NS 0.9% 200 ML IV PRN (19:30)
[2025-06-24] MEDS: PHENYLEPHRINE 10 MG/ML VIAL ONE (19:55)
[2025-06-24] MEDS: NOREPINEPHRINE 4 MG/4 ML AMPUL IV ONE (19:55)
[2025-06-24] MEDS ORDERED: IV LR 1000 ML 1,000 ML IV SCH (20:00)
[2025-06-24] MEDS ORDERED: EPINEPHRINE (1:1000) MDV 30 MG/30ML VIAL ONE (20:44)
[2025-06-24] MEDS: EPINEPHRINE (1:10,000) SYRINGE 1 MG/10 ML DISP.SYRIN ONE (20:45)
[2025-06-24] MEDS: NOREPINEPHRINE 32 MG in IV NS 0.9% 218 ML IV PRN (20:58)
[2025-06-24 21:02] LABS: ABG BASE EXCESS -13.2 mmol/L (-2.0-3.0); ABG OXYGEN SATURATION 71.6 % (94.0-98.0); ABG PCO2 112.0 mmHg (35.0-48.0); ABG PH 6.904 (7.350-7.450); ABG PO2 52.1 mmHg (83.0-108.0); ABG TOTAL HEMOGLOBIN 13.0 G/dL (13.5-17.5); FRACTIONATED INSPIRED OXYGEN 100.0 %; PEEP,BG 3 cm H2O; SET RATE, BG 24.0; SITE, ABG ALINE; VT, ABG 550 mL
[2025-06-24] MEDS: PHENYLEPHRINE 100 MG in IV NS 0.9% 240 ML IV PRN (21:06)
[2025-06-24] MEDS: Magnesium 1GM/D5W 100ML PREMIX 100 ML IV SCH (22:01)
[2025-06-24] MEDS: PANTOPRAZOLE 40 MG VIAL IV SCH (22:51)
[2025-06-24] MEDS: FENTANYL PF 100MCG/2ML AMPUL IV SCH (23:00)
[2025-06-24] MEDS: ALBUMIN 25% 12.5 GM/50 ML BOTTLE IV ONE (23:42)
[2025-06-25] VITALS (43 sets, daily range): BP systolic 25–112; BP diastolic 16–69; TEMP 94–98; O2SAT 39–91
[2025-06-25] MEDS: NS 0.9% IV PRN (01:12)
[2025-06-25] MEDS: ROCURONIUM BROMIDE IV PRN (01:12)
[2025-06-25 04:34] LABS: PLATELET COUNT (AUTO) 184 K/uL (150-450); RED BLOOD CELL COUNT(AUTO) 3.02 MIL/uL (4.5-6.0); RED CELL DISTRIBUTION WIDTH 22.8 % (11.5-15.0); WHITE BLOOD COUNT (AUTO) 3.4 K/uL (4.3-11.0)
[2025-06-25 04:49] LABS: IRON, SERUM 40.0 ug/dl (50-175)
[2025-06-25 05:05] LABS: LDL 19.0 mg/dL (0-99)
[2025-06-25 05:07] LABS: CALCIUM, SERUM 6.2 mg/dL (8.5-10.1); SODIUM SERUM 154.0 mmol/L (136-145)
[2025-06-25 05:23] LABS: CREATININE 3.3 mg/dL (0.6-1.3)
[2025-06-25 05:26] LABS: PHOSPHORUS 10.8 mg/dL (2.5-4.9); UREA NITROGEN, BLOOD 84.0 mg/dL (7-18)
[2025-06-25 05:46] LABS: BAND % (MANUAL) 5 % (0.0-5.0); EOSINOPHILS % (MANUAL) 1 % (0-4); LYMPHOCYTES % (MANUAL) 38 % (16-48); METAMYELOCYTES % 12 % (0-0); MONOCYTES % (MANUAL) 2 % (0-11.0); MYELOCYTES % 6 % (0-0); NEUTROPHILS % (MANUAL) 35 (42-76); PLATELET ESTIMATE GIANT PLATELET SEEN
[2025-06-25 05:47] LABS: NUCLEATED RED BLOOD CELLS 2.0 /100WBC (0.0-0.0)
[2025-06-25] MEDS: DEXTROSE 50%-WATER 50 ML DISP.SYRIN IVP ONE (05:49)
[2025-06-25 06:16] LABS: ABG BASE EXCESS -14.1 mmol/L (-2.0-3.0); ABG OXYGEN SATURATION 76.9 % (94.0-98.0); ABG PCO2 59.4 mmHg (35.0-48.0); ABG PH 7.053 (7.350-7.450); ABG PO2 48.9 mmHg (83.0-108.0); ABG TOTAL HEMOGLOBIN 10.4 G/dL (13.5-17.5); FRACTIONATED INSPIRED OXYGEN 100.0 %; PEEP,BG 3 cm H2O; SET RATE, BG 32.0; SITE, ABG ALINE; VT, ABG 550 mL
[2025-06-25] MEDS ORDERED: Sodium Chloride 77 MEQ in IV 10% DEXTROSE 1,000 ML IV PRN (06:30)
[2025-06-25] MEDS: Sodium Bicarbonate 150 MEQ in IV D5W 1,000 ML IV SCH (07:15)
[2025-06-25] MEDS: DEXTROSE 50%-WATER 50 ML DISP.SYRIN IV PRN (08:43)
[2025-06-25] MEDS: PANTOPRAZOLE 40 MG VIAL IV SCH (09:07)
[2025-06-25] MEDS: BLOOD SUGAR DIAGNOSTIC 1 EACH STRIP IN SCH (09:08)
[2025-06-25] MEDS ORDERED: DOSING PER PHARMACY-ZOSYN IV 1 EA EA XX PRN (10:00)
[2025-06-25 10:05] LABS: ABG BASE EXCESS -21.5 mmol/L (-2.0-3.0); ABG OXYGEN SATURATION 48.5 % (94.0-98.0); ABG PCO2 73.8 mmHg (35.0-48.0); ABG PH 6.837 (7.350-7.450); ABG PO2 35.8 mmHg (83.0-108.0); ABG TOTAL HEMOGLOBIN 10.1 G/dL (13.5-17.5); FRACTIONATED INSPIRED OXYGEN 100.0 %; PEEP,BG 5 cm H2O; SET RATE, BG 28.0; SITE, ABG ALINE; VT, ABG 550 mL
[2025-06-25 11:39] LABS: ABG BASE EXCESS -23.8 mmol/L (-2.0-3.0); ABG OXYGEN SATURATION 62.6 % (94.0-98.0); ABG PCO2 61.7 mmHg (35.0-48.0); ABG PH 6.818 (7.350-7.450); ABG PO2 45.8 mmHg (83.0-108.0); ABG TOTAL HEMOGLOBIN 9.7 G/dL (13.5-17.5); FRACTIONATED INSPIRED OXYGEN 100.0 %; PEEP,BG 8 cm H2O; SET RATE, BG 32.0; SITE, ABG ALINE; VT, ABG 550 mL
[2025-06-25] MEDS: IV 10% DEXTROSE 1,000 ML IV PRN (11:52)
[2025-06-25] MEDS ORDERED: MULT-594 PO (11:56)
[2025-06-25] MEDS ORDERED: ASCO500T10 PO (11:56)
[2025-06-25] MEDS ORDERED: ZINC50TA65 PO (11:56)
[2025-06-25] MEDS ORDERED: MIRT7.5T10 PO (11:56)
[2025-06-25] MEDS ORDERED: MEGE400O4 PO (11:56)
[2025-06-25] MEDS ORDERED: ATEN25TA PO (11:56)
[2025-06-25] MEDS ORDERED: MAG30ORA PO (11:56)
[2025-06-25] MEDS: PIPERACILLIN /TAZOBACTAM 2.25 G in IV D5W 50 ML IV SCH (12:07)
[2025-06-25] MEDS ORDERED: SODIUM BICARBONATE SYR 50 MEQ/50 ML DISP.SYRIN IV ONE (13:10)
[2025-06-25] MEDS ORDERED: EPINEPHRINE (1:10,000) SYRINGE 1 MG/10 ML DISP.SYRIN IVP ONE (13:10)
[2025-06-25] MEDS ORDERED: ETOMIDATE 2 MG/ML VIAL IV ONE (13:10)
[2025-06-25] MEDS ORDERED: VANCOMYCIN 500 MG in IV D5W 100ml IV SCH (18:00)
== END 2025-06-25 12:12 | DRG 720 ==
LOC: ER 13:05 → ICU 17:14
PROVIDERS: ADMIT Nurse Practitioner Acute Care; ATTEND Nurse Practitioner Acute Care
PROC: 5A1935Z Respiratory Ventilation, Less than 24 Consecutive Hours (ICD-10-PCS; principal; 2025-06-24)
PROC: 0BH18EZ Insertion of Endotracheal Airway into Trachea, Via Natural or Artificial Opening Endoscopic (ICD-10-PCS; 2025-06-24)
PROC: 5A09357 Assistance with Respiratory Ventilation, Less than 24 Consecutive Hours, Continuous Positive Airway Pressure (ICD-10-PCS; 2025-06-24)
PROC: 03H633Z Insertion of Infusion Device into Left Axillary Artery, Percutaneous Approach (ICD-10-PCS; 2025-06-24)
PROC: 0JH63XZ Insertion of Tunneled Vascular Access Device into Chest Subcutaneous Tissue and Fascia, Percutaneous Approach (ICD-10-PCS; 2025-06-24)
PROC: 05H533Z Insertion of Infusion Device into Right Subclavian Vein, Percutaneous Approach (ICD-10-PCS; 2025-06-24)
PROC: 30233K1 Transfusion of Nonautologous Frozen Plasma into Peripheral Vein, Percutaneous Approach (ICD-10-PCS; 2025-06-24)
PROC: 30233N1 Transfusion of Nonautologous Red Blood Cells into Peripheral Vein, Percutaneous Approach (ICD-10-PCS; 2025-06-24)
DX: A41.9 Sepsis, unspecified organism (principal); I46.9 Cardiac arrest, cause unspecified; K72.00 Acute and subacute hepatic failure without coma; J96.02 Acute respiratory failure with hypercapnia; R65.21 Severe sepsis with septic shock; E43 Unspecified severe protein-calorie malnutrition; J69.0 Pneumonitis due to inhalation of food and vomit; J96.01 Acute respiratory failure with hypoxia; K92.2 Gastrointestinal hemorrhage, unspecified; Z51.5 Encounter for palliative care; Z66 Do not resuscitate; D68.9 Coagulation defect, unspecified; Z20.822 Contact with and (suspected) exposure to COVID-19; D64.9 Anemia, unspecified; Z79.899 Other long term (current) drug therapy; Z74.1 Need for assistance with personal care; Z59.00 Homelessness unspecified; N32.0 Bladder-neck obstruction; I11.0 Hypertensive heart disease with heart failure; I50.9 Heart failure, unspecified; N40.1 Benign prostatic hyperplasia with lower urinary tract symptoms; R31.0 Gross hematuria; I48.91 Unspecified atrial fibrillation; D75.89 Other specified diseases of blood and blood-forming organs; F03.90 Unspecified dementia, unspecified severity, without behavioral disturbance, psychotic disturbance, mood disturbance, and anxiety; N13.8 Other obstructive and reflux uropathy; N17.9 Acute kidney failure, unspecified; R74.01 Elevation of levels of liver transaminase levels; E87.0 Hyperosmolality and hypernatremia; E86.0 Dehydration; E87.4 Mixed disorder of acid-base balance; E87.5 Hyperkalemia
CPT/HCPCS: 31720; 36415; 71045-TC; 80048-TC; 80061-TC; 80076-TC; 81001; 82803-TC; 82962-TC; 83540-TC; 83605-TC; 83690-TC; 83735-TC; 84100-TC; 84443-TC; 84484-TC; 85025-TC; 85027-TC; 85730-TC; 86850-TC; 87040-TC; 87081-TC; 87086-TC; 87186-TC; 93307-TC; 94002-TC; 94003-TC; 94799-TC; 99082-TC; A4217; A4223; A6403; G0378; J0169; J2470; J2543; J2919; J3010; J3373; J3475; J3490; J7030; J7040; J7050; J7060; J7070; J7120; P9016; P9017; P9047